=== PATIENT | male | born 1975 | race African-American/Black ===

== ENCOUNTER 2020-07-20 19:20 | Emergency (ER) | payer OTHER, SELFPAY ==
[2020-07-20 19:25] VITALS: BP 179/100
[2020-07-20 19:28] VITALS: BP 179/100; PULSE 104; RESP 18; TEMP 36.6; O2SAT 100; BMI 26.8
[2020-07-20 19:35] LABS: Add Manual Diff / Slide Review NO; Basophils Absolute Auto 100 /uL (0-100); Eosinophils Absolute Auto 0 /uL (0-450); Eosinophils Percent Auto 0.8 % (2-4); Hematocrit 41.2 % (41-53); Hemoglobin 13.9 g/dL (13.5-17.5); Lymphocytes Absolute Auto 1500 /uL (1100-4500); Lymphocytes Percent Auto 24.1 % (25-40); Mean Corpuscular HGB Conc 33.6 % (30-36); Mean Corpuscular Hemoglobin 29.9 PG (26-34); Mean Corpuscular Volume 88.9 fL (80-100); Monocytes Absolute Auto 500 /uL (0-900); Monocytes Percent Auto 8.7 % (3-14); Neutrophils Absolute Auto 4000 /uL (1500-7000); Neutrophils Percent Auto 65.4 % (50-75); Platelet Count 178 X10^3/uL (150-400); Red Blood Cell Count 4.64 X10^6/uL (4.5-5.9); Red Cell Distribution Width 12.7 % (11.6-14.8); White Blood Cell Count 6.1 X10^3/uL (4.5-11.0)
[2020-07-20 19:41] LABS: INR 1.1 (0.9-1.3); Prothrombin Time 12.3 SECONDS (10.1-12.7)
[2020-07-20 19:44] LABS: PTT Partial Thromboplastin Tim 31 SECONDS (26.4-36.2)
[2020-07-20 19:45] LABS: Alanine Aminotransferase 35 IU/L (<50); Albumin 4.5 g/dL (3.5-5.0); Albumin Globulin Ratio 1.2 (1.0-2.8); Alkaline Phosphatase 169 U/L (38-126); Aspartate Aminotransferase 55 IU/L (17-59); BUN Creatinine Ratio 15.7 (6-22); Bilirubin Total 0.7 mg/dL (0.2-1.3); Blood Urea Nitrogen 14 mg/dL (9-20); Calcium 9.2 mg/dL (8.4-10.2); Carbon Dioxide 28 mmol/L (22-32); Chloride 100 mmol/L (98-107); Estimated Glomerular Filt Rate > 60.0 mL/min (>60); Globulin 3.8 g/dL (1.7-4.1); Glucose 236 mg/dL (70-100); HEMOLYSIS 31 (0-50); Lipase 150 U/L (23-300); Potassium 3.8 mmol/L (3.4-5.1); Sodium 135 mmol/L (137-145); Total Protein 8.3 g/dL (6.3-8.2)
--- NOTE | 2020-07-20 19:47 | ED.ABDPAIN ---
HPI - Abdominal Pain General Chief Complaint: Abdominal Pain Stated Complaint: stomach pain Time Seen by Provider: 07/20/20 19:34 Source: patient Mode of arrival: Ambulatory Limitations: no limitations History of Present Illness HPI narrative: The patient is a 44-year-old male current smoker with history of type 2 diabetes and hypertension who presents with a chief complaint of abdominal pain. He states that his stomach has been hurting across his lower abdomen, especially after he eats. He has had some changes in stool range from constipation to loose stools. He has tried Pepto-Bismol to feel better, but it has not worked. He denies any fevers, complains of nausea with no vomiting. Denies any muscle aches or chills. He states that when the pain gets really bad he feels exhausted. He denies any dysuria urgency or frequency. He states that his bowel movements though have been alternating between constipation and diarrhea have been normal with no obvious blood. Denies any chest pain or shortness of breath. Denies any cough or congestion. He states that he is supposed to take medications for his diabetes and hypertension including insulin and lisinopril, but has not been taking them because of how he is feeling. He states his blood sugars have been running high in the 200s. Patient notes that this all started when he became very stressed a few weeks ago, with some family conflict between his girlfriend is teenagers. Related Data Allergies Allergy/AdvReac Type Severity Reaction Status Date / Time No Known Drug Allergies Allergy Verified 07/20/20 19:27 Review of Systems Review of Systems Narrative: GENERAL: See HPI HEENT: Denies sinus pain, ear pain, sore throat, difficulty swallowing, dizziness. RESPIRATORY: Denies dyspnea, cough, wheezing, hemoptysis, sputum. CARDIOVASCULAR: Denies chest pain, palpitations, orthopnea, edema, GASTROINTESTINAL: See HPI : Denies dysuria, frequency, incontinence, hematuria, urinary retention. MUSCULOSKELETAL: denies weakness, joint pain, or bony pain SKIN: Denies rash, skin lesions, or other NEUROLOGIC: Denies weakness, headache, numbness, change in speech, confusion, seizures, incoordination. PSYCHIATRIC: No concerning psychosocial issues. 12 point review of systems is negative except for those stated above Patient History Medical History (Updated 07/20/20 @ 19:49 by Audra Kvng, RECORDS SUPERVISOR-BC) Hypertension Type 2 diabetes mellitus Social History Smoking Status: Current every day smoker Smoking Status: Current every day smoker tobacco type: vaping alcohol intake frequency: a few times a week Substance Use Type: does not use Exam Narrative Exam Narrative: GENERAL: This is a well-nourished, well-developed patient, in no acute distress HEAD: Atraumatic. Normocephalic. No temporal or scalp tenderness. EYES: Pupils equal round and reactive. Extraocular motions intact. No scleral icterus. No injection or drainage. ENT: Nose without bleeding, purulent drainage or septal hematoma. Wearing a mask Airway patent. NECK: Trachea midline. No JVD or lymphadenopathy. Supple, nontender, no meningeal signs. CARDIOVASCULAR: Regular rate and rhythm RESPIRATORY: Clear to auscultation. Breath sounds equal bilaterally. No wheezes, rales, or rhonchi. No cough. No increased respiratory effort. No accessory muscle use GASTROINTESTINAL: Abdomen soft, active bowel sounds all 4 quadrants, guarding noted to palpation of left lower quadrant EXTREMITIES: No clubbing, cyanosis, or edema. No joint tenderness, effusion, or edema noted. BACK: Nontender without deformity or crepitance. No flank tenderness. NEURO: AOx3. SKIN: No rash or erythema on visible skin Initial Vital Signs Initial Vital Signs: Vital Signs Temperature 97.9 F 07/20/20 19:28 Pulse Rate 104 H 07/20/20 19:28 Respiratory Rate 18 07/20/20 19:28 Blood Pressure 179/100 H 07/20/20 19:28 Pulse Oximetry 100 07/20/20 19:28 Scores GCS [place] coma scale eye opening: Spontaneous [place] coma scale verbal response: Orientated [place] coma scale motor response: Obey commands [place] coma scale total score: 15 Course Orders Ordered: ED Orders 07/20/20 19:30 Complete Blood Count AUTO DIFF Stat Comprehensive Metabolic Panel Stat Lipase Stat Partial Thromboplastin Time Stat Prothrombin Time INR Stat 07/20/20 19:31 EKG-12 Lead Stat Sodium Chloride (Normal Saline 0.9%) 1,000 mls @ 1,000 mls/hr IV BOLUS ONE Stop: 07/20/20 20:45 Discontinued Medications Pantoprazole Sodium (Pantoprazole 40 Mg Vial) 40 mg IV NOW ONE Stop: 07/20/20 19:47 Vital Signs Vital signs: Vital Signs - 8 hr 07/20/20 19:28 Temperature 97.9 F Pulse Rate 104 H Respiratory Rate 18 Blood Pressure 179/100 H Pulse Oximetry 100 MDM - Abdominal Pain Lab Data Result diagrams: 07/20/20 19:30 07/20/20 19:30 Labs: Lab Results 07/20/20 07/20/20 07/20/20 Range/Units 19:30 19:30 19:30 WBC 6.1 (4.5-11.0) X10^3/uL RBC 4.64 (4.5-5.9) X10^6/uL Hgb 13.9 (13.5-17.5) g/dL Hct 41.2 (41-53) % MCV 88.9 (80-100) fL MCH 29.9 (26-34) PG MCHC 33.6 (30-36) % RDW 12.7 (11.6-14.8) % Plt Count 178 (150-400) X10^3/uL Neut % (Auto) 65.4 (50-75) % Lymph % (Auto) 24.1 L (25-40) % [place] % (Auto) 8.7 (3-14) % Eos % (Auto) 0.8 L (2-4) % Baso % (Auto) 1.0 (0-2) % Neut # (Auto) 4000 (6176-0989) /uL Lymph # (Auto) 1500 (0213-4175) /uL [place] # (Auto) 500 (0-900) /uL Eos # (Auto) 0 (0-450) /uL Baso # (Auto) 100 (0-100) /uL PT 12.3 (10.1-12.7) SECONDS INR 1.1 (0.9-1.3) APTT 31 (26.4-36.2) SECONDS Sodium 135 L (137-145) mmol/L Potassium 3.8 (3.4-5.1) mmol/L Chloride 100 (98-107) mmol/L Carbon Dioxide 28 (22-32) mmol/L BUN 14 (9-20) mg/dL Creatinine 0.89 (0.66-1.25) mg/dL Estimated GFR > 60.0 (>60) mL/min BUN/Creatinine Ratio 15.7 (6-22) Glucose 236 H (70-100) mg/dL Calcium 9.2 (8.4-10.2) mg/dL Total Bilirubin 0.7 (0.2-1.3) mg/dL AST 55 (17-59) IU/L ALT 35 (<50) IU/L Alkaline Phosphatase 169 H (38-126) U/L Total Protein 8.3 H (6.3-8.2) g/dL Albumin 4.5 (3.5-5.0) g/dL Globulin 3.8 (1.7-4.1) g/dL Albumin/Globulin Ratio 1.2 (1.0-2.8) Lipase 150 (23-300) U/L
--- NOTE | 2020-07-20 19:54 | DI.CT.S_ITS ---
PROCEDURE: CT ABDOMEN PELVIS W CON INDICATIONS: LLQ pain TECHNIQUE: After the administration of intravenous contrast, 5 mm thick sections acquired from the diaphragm to the symphysis. 5 mm coronal and sagittal reformats were acquired. For radiation dose reduction, the following was used: automated exposure control, adjustment of mA and/or kV according to patient size. COMPARISON: None. FINDINGS: Image quality: Excellent. ABDOMEN: Lung bases: Lung bases are clear. Heart size is normal. Solid organs: Liver is normal in size and enhancement. Hepatic steatosis. Gallbladder is unremarkable. . Biliary system is non dilated. Pancreas enhances normally. Spleen is normal in size and enhancement. No adrenal nodules. Kidneys demonstrate normal size and enhancement, without hydronephrosis. Peritoneum and bowel: Bowel loops demonstrate normal wall thickness and caliber. No free fluid or air. Normal appendix. Nodes and vessels: No retroperitoneal or mesenteric adenopathy by size criteria. Aorta and inferior vena cava are normal in size. Miscellaneous: No ventral hernias. PELVIS: Genitourinary: There is minimal circumferential urinary bladder wall thickness for degree of bladder distention. Miscellaneous: No inguinal hernias or adenopathy. Bones: No suspicious bony lesions. No acute vertebral body compression fractures. IMPRESSION: 1. CT abdomen and pelvis without acute abnormalities. Specifically, no evidence for diverticular disease or acute appendicitis. 2. Minimal urinary bladder wall thickening for degree of bladder distention. Recommend evaluating for possible cystitis. 3. Hepatic steatosis. Dictated by: Oli Rivera M.D. on 07/20/2020 at 20:49 Approved by: Oli Rivera M.D. on 07/20/2020 at 20:53
--- NOTE | 2020-07-20 19:58 | ED_ITS ---
HPI - Abdominal Pain [facility] - Last Filed: 07/20/20 20:13> General Chief Complaint: Abdominal Pain Stated Complaint: stomach pain Time Seen by Provider: 07/20/20 19:34 Source: patient Mode of arrival: Ambulatory Limitations: no limitations History of Present Illness HPI narrative: The patient is a 44-year-old male, history of type 2 diabetes as well as hypertension on lisinopril and insulin who presents with a chief complaint of left lower quadrant abdominal pain. He states has been going on for several weeks, worsened after he eats. He complains of nausea, no vomiting. Denies any fevers. Denies any blood in his stool. States that he rotates between constipation and loose stools. He has tried Pepto-Bismol, but he does not like the taste of that. She has tried ibuprofen, but then his pain feels worse in the morning. He denies any dysuria urgency or frequency. States his last bowel movement was this morning. His primary care provider is in [place]. He states that he has been feeling poorly enough to not be taking his medications, so his blood sugars have been high in the 200s. He states his last bowel movement was today. Related Data Previous Rx's Medication Instructions Recorded pantoprazole [Protonix] 40 mg PO DAILY #14 tab 07/20/20 Allergies Allergy/AdvReac Type Severity Reaction Status Date / Time No Known Drug Allergies Allergy Verified 07/20/20 19:27 Review of Systems <[facility] - Last Filed: 07/20/20 20:13> Review of Systems Narrative: GENERAL: See HPI HEENT: Denies sinus pain, ear pain, sore throat, difficulty swallowing, dizziness. RESPIRATORY: Denies dyspnea, cough, wheezing, hemoptysis, sputum. CARDIOVASCULAR: Denies chest pain, palpitations, orthopnea, edema, GASTROINTESTINAL: See HPI : Denies dysuria, frequency, incontinence, hematuria, urinary retention. MUSCULOSKELETAL: denies weakness, joint pain, or bony pain SKIN: Denies rash, skin lesions, or other NEUROLOGIC: Denies weakness, headache, numbness, change in speech, confusion, seizures, incoordination. PSYCHIATRIC: No concerning psychosocial issues. 12 point review of systems is negative except for those stated above Patient History <[facility] - Last Filed: 11/18/20 20:13> Medical History Hypertension Type 2 diabetes mellitus Social History Smoking Status: Current every day smoker Smoking Status: Current every day smoker tobacco type: vaping alcohol intake frequency: a few times a week Substance Use Type: does not use Exam <VEGA Umaña - Last Filed: 07/20/20 20:13> Narrative Exam Narrative: GENERAL: This is a well-nourished, well-developed patient, in no acute distress HEAD: Atraumatic. Normocephalic. No temporal or scalp tenderness. EYES: Pupils equal round and reactive. Extraocular motions intact. No scleral icterus. No injection or drainage. ENT: Nose without bleeding, purulent drainage or septal hematoma. Wearing a mask. Airway patent. NECK: Trachea midline. No JVD or lymphadenopathy. Supple, nontender, no meningeal signs. CARDIOVASCULAR: Regular rate and rhythm RESPIRATORY: Clear to auscultation. Breath sounds equal bilaterally. No wheezes, rales, or rhonchi. No cough. No increased respiratory effort. No accessory muscle use. GASTROINTESTINAL: Abdomen soft, active bowel sounds all 4 quadrants. Pain to palpation with guarding noted left lower quadrant. EXTREMITIES: No clubbing, cyanosis, or edema. No joint tenderness, effusion, or edema noted. BACK: Nontender without deformity or crepitance. No flank tenderness. NEURO: AOx3. SKIN: No rash or erythema on visible skin Initial Vital Signs Initial Vital Signs: Vital Signs Blood Pressure 179/100 H 07/20/20 19:25 <Joel Gonsalves DO - Last Filed: 07/21/20 04:44> Initial Vital Signs Initial Vital Signs: Vital Signs Blood Pressure 179/100 H 07/20/20 19:25 Scores <VEGA Umaña - Last Filed: 07/20/20 20:13> GCS [place] coma scale eye opening: Spontaneous [place] coma scale verbal response: Orientated [place] coma scale motor response: Obey commands [place] coma scale total score: 15 Course <VEGA Umaña - Last Filed: 07/20/20 20:13> Course Course Narrative: The patient is a 44-year-old male who presents with a chief complaint of left lower quadrant abdominal pain, worse after he eats. His lab work is reassuring, no leukocytosis. However his guarding on exam, it is had pain ongoing for several weeks, so CT abdomen pelvis was obtained. Unfortunately the patient drove here and cannot obtain a ride home, so he declines pain medications throughout my stay. The patient was signed out to Dr. Gonsalves at 8:00 p.m. with imaging pending. Orders Ordered: ED Orders 07/20/20 19:54 CT abdomen pelvis w con Stat Discontinued Medications Al Hydrox/Mg Hydrox/Simethicone 20 ml/ Lidocaine HCl 15 ml 0 ml PO NOW ONE Stop: 07/20/20 21:32 Last Admin: 07/20/20 21:38 Dose: 35 ml Documented by: JUSTIN Sodium Chloride (Normal Saline 0.9%) 1,000 mls @ 1,000 mls/hr IV BOLUS ONE Stop: 07/20/20 20:45 Last Infusion: 07/20/20 22:13 Dose: 0 mls/hr Documented by: Admin: 07/20/20 20:36 Dose: 1,000 mls/hr Documented by: JUSTIN Pantoprazole Sodium (Pantoprazole 40 Mg Vial) 40 mg IV NOW ONE Stop: 07/20/20 19:47 Last Admin: 07/20/20 20:35 Dose: 40 mg Documented by: JUSTIN Vital Signs Vital signs: Vital Signs - 8 hr 07/20/20 20:58 07/20/20 20:59 07/20/20 21:49 Pulse Rate 91 H 85 77 Respiratory Rate 17 Blood Pressure 179/107 H 187/110 H Pulse Oximetry 99 100 100 <Joel Gonsalves, DO - Last Filed: 07/21/20 04:44> Course Course Narrative: I have performed an independent history and physical. It would seem that his symptoms are likely multifactorial and stemming from stressful scenarios at home which led him to drink a bit more than normal, change in his diet (worse than normal) and has been irregular with his medications. His labs, imaging, and exam are all very reassuring. Extensive discussion with patient regarding resuming his meds, limiting alcohol consumption, better diet, close follow up and return precautions. Orders Ordered: ED Orders 07/20/20 19:54 CT abdomen pelvis w con Stat Discontinued Medications Al Hydrox/Mg Hydrox/Simethicone 20 ml/ Lidocaine HCl 15 ml 0 ml PO NOW ONE Stop: 07/20/20 21:32 Last Admin: 07/20/20 21:38 Dose: 35 ml Documented by: JUSTIN Sodium Chloride (Normal Saline 0.9%) 1,000 mls @ 1,000 mls/hr IV BOLUS ONE Stop: 07/20/20 20:45 Last Infusion: 07/20/20 22:13 Dose: 0 mls/hr Documented by: Admin: 07/20/20 20:36 Dose: 1,000 mls/hr Documented by: JUSTIN Pantoprazole Sodium (Pantoprazole 40 Mg Vial) 40 mg IV NOW ONE Stop: 07/20/20 19:47 Last Admin: 07/20/20 20:35 Dose: 40 mg Documented by: JUSTIN Vital Signs Vital signs: Vital Signs - 8 hr 07/20/20 20:58 07/20/20 20:59 07/20/20 21:49 Pulse Rate 91 H 85 77 Respiratory Rate 17 Blood Pressure 179/107 H 187/110 H Pulse Oximetry 99 100 100 MDM - Abdominal Pain <ROSIE Umaña- - Last Filed: 07/20/20 20:13> Lab Data Result diagrams: 07/20/20 19:30 07/20/20 19:30 Labs: Lab Results 07/20/20 07/20/20 07/20/20 Range/Units 19:30 19:30 19:30 WBC 6.1 (4.5-11.0) X10^3/uL RBC 4.64 (4.5-5.9) X10^6/uL Hgb 13.9 (13.5-17.5) g/dL Hct 41.2 (41-53) % MCV 88.9 (80-100) fL MCH 29.9 (26-34) PG MCHC 33.6 (30-36) % RDW 12.7 (11.6-14.8) % Plt Count 178 (150-400) X10^3/uL Neut % (Auto) 65.4 (50-75) % Lymph % (Auto) 24.1 L (25-40) % [place] % (Auto) 8.7 (3-14) % Eos % (Auto) 0.8 L (2-4) % Baso % (Auto) 1.0 (0-2) % Neut # (Auto) 4000 (6266-0756) /uL Lymph # (Auto) 1500 (5811-7107) /uL [place] # (Auto) 500 (0-900) /uL Eos # (Auto) 0 (0-450) /uL Baso # (Auto) 100 (0-100) /uL PT 12.3 (10.1-12.7) SECONDS INR 1.1 (0.9-1.3) APTT 31 (26.4-36.2) SECONDS Sodium 135 L (137-145) mmol/L Potassium 3.8 (3.4-5.1) mmol/L Chloride 100 (98-107) mmol/L Carbon Dioxide 28 (22-32) mmol/L BUN 14 (9-20) mg/dL Creatinine 0.89 (0.66-1.25) mg/dL Estimated GFR > 60.0 (>60) mL/min BUN/Creatinine Ratio 15.7 (6-22) Glucose 236 H (70-100) mg/dL Calcium 9.2 (8.4-10.2) mg/dL Total Bilirubin 0.7 (0.2-1.3) mg/dL AST 55 (17-59) IU/L ALT 35 (<50) IU/L Alkaline Phosphatase 169 H (38-126) U/L Total Protein 8.3 H (6.3-8.2) g/dL Albumin 4.5 (3.5-5.0) g/dL Globulin 3.8 (1.7-4.1) g/dL Albumin/Globulin Ratio 1.2 (1.0-2.8) Lipase 150 (23-300) U/L Point of care testing: Urine Dip Bedside Urine Glucose 500 mg/dl Bedside Urine Bilirubin - Negative Bedside Urine Ketone - Negative Urine Specific [place] 1.010 Bedside Urine Occult Blood - Negative Bedside Urine pH 6.0 Bedside Urine Protein - Negative Bedside Urine Urobilinogen - Negative Bedside Urine Nitrite - Negative Bedside Urine Leukocytes - Negative Esterase <Joel Gonsalves DO - Last Filed: 07/21/20 04:44> Lab Data Labs: Lab Results 11/07/20/20 07/20/20 Range/Units 19:30 19:30 19:30 WBC 6.1 (4.5-11.0) X10^3/uL RBC 4.64 (4.5-5.9) X10^6/uL Hgb 13.9 (13.5-17.5) g/dL Hct 41.2 (41-53) % MCV 88.9 (80-100) fL MCH 29.9 (26-34) PG MCHC 33.6 (30-36) % RDW 12.7 (11.6-14.8) % Plt Count 178 (150-400) X10^3/uL Neut % (Auto) 65.4 (50-75) % Lymph % (Auto) 24.1 L (25-40) % [place] % (Auto) 8.7 (3-14) % Eos % (Auto) 0.8 L (2-4) % Baso % (Auto) 1.0 (0-2) % Neut # (Auto) 4000 (3708-4613) /uL Lymph # (Auto) 1500 (1736-8117) /uL [place] # (Auto) 500 (0-900) /uL Eos # (Auto) 0 (0-450) /uL Baso # (Auto) 100 (0-100) /uL PT 12.3 (10.1-12.7) SECONDS INR 1.1 (0.9-1.3) APTT 31 (26.4-36.2) SECONDS Sodium 135 L (137-145) mmol/L Potassium 3.8 (3.4-5.1) mmol/L Chloride 100 (98-107) mmol/L Carbon Dioxide 28 (22-32) mmol/L BUN 14 (9-20) mg/dL Creatinine 0.89 (0.66-1.25) mg/dL Estimated GFR > 60.0 (>60) mL/min BUN/Creatinine Ratio 15.7 (6-22) Glucose 236 H (70-100) mg/dL Calcium 9.2 (8.4-10.2) mg/dL Total Bilirubin 0.7 (0.2-1.3) mg/dL AST 55 (17-59) IU/L ALT 35 (<50) IU/L Alkaline Phosphatase 169 H (38-126) U/L Total Protein 8.3 H (6.3-8.2) g/dL Albumin 4.5 (3.5-5.0) g/dL Globulin 3.8 (1.7-4.1) g/dL Albumin/Globulin Ratio 1.2 (1.0-2.8) Lipase 150 (23-300) U/L Point of care testing: Urine Dip Bedside Urine Glucose 500 mg/dl Bedside Urine Bilirubin - Negative Bedside Urine Ketone - Negative Urine Specific [place] 1.010 Bedside Urine Occult Blood - Negative Bedside Urine pH 6.0 Bedside Urine Protein - Negative Bedside Urine Urobilinogen - Negative Bedside Urine Nitrite - Negative Bedside Urine Leukocytes - Negative Esterase Imaging Data CT scan - abdomen/pelvis: Radiologist's Impression: 26 Joel Gonsalves, DO Find Patient Imaging - Jason Leal 44 M 1975 ACTIVITY DATE EXAM STATUS AUTHOR 07/20/20 19:[address] [id number] Scan ReportSigned Patient: Jason LealMR#: [id number]: 1975Acct:[id number]/Sex: 44 / MDate of Service: 07/20/20Loc: EDAccession Number: [id number] Procedure: CT abdomen pelvis w con Ordering Provider: Audra Calderon WEB CONTENT DEVELOPER- PROCEDURE: CT ABDOMEN PELVIS W CON INDICATIONS: LLQ pain TECHNIQUE: After the administration of intravenous contrast, 5 mm thick sections acquired from the diaphragm to the symphysis. 5 mm coronal and sagittal reformats were acquired. For radiation dose reduction, the following was used: automated exposure control, adjustment of mA and/or kV according to patient size. COMPARISON: None. FINDINGS: Image quality: Excellent. ABDOMEN: Lung bases: Lung bases are clear. Heart size is normal. Solid organs: Liver is normal in size and enhancement. Hepatic steatosis. G allbladder is unremarkable. . Biliary system is non dilated. Pancreas enhances normally. Spleen is normal in size and enhancement. No adrenal nodules. Kidneys demonstrate normal size and enhancement, without hydronephrosis. Peritoneum and bowel: Bowel loops demonstrate normal wall thickness and caliber. No free fluid or air. Normal appendix. Nodes and vessels: No retroperitoneal or mesenteric adenopathy by size criteria. Aorta and inferior vena cava are normal in size. Miscellaneous: No ventral hernias. PELVIS: Genitourinary: There is minimal circumferential urinary bladder wall thickness for degree of bladder distention. Miscellaneous: No inguinal hernias or adenopathy. Bones: No suspicious bony lesions. No acute vertebral body compression fractures. IMPRESSION: 1. CT abdomen and pelvis without acute abnormalities. Specifically, no evidence for diverticular disease or acute appendicitis. 2. Minimal urinary bladder wall thickening for degree of bladder distention. Recommend evaluating for possible cystitis. 3. Hepatic steatosis. Dictated by: Oli Rivera M.D. on 07/20/2020 at 20:49 Approved by: Oli Rivera M.D. on 07/20/2020 at 20:53 Discharge Plan Departure Patient Disposition: Home Clinical Impression: Abdominal pain, acute, left upper quadrant Type 2 diabetes mellitus Qualifiers: Diabetes mellitus intermediate card tender insulin use: unspecified intermediate card tender insulin use status Diabetes mellitus complication status: without complication Qualified Code(s): E11.9 - Type 2 diabetes mellitus without complications Instructions: Acute Abdominal Pain Activity Restrictions/Additional Instructions: *You have been diagnosed with [upper abdominal pain likely mild ulcer or gastritis. Your labs and CT scan are very reassuring and there is no evidence significant problem such as appendicitis, pancreatitis, or bowel obstruction] *What to do: *You must take your medications as directed. Also, take the new prescription (protonix) as written. Try to get back on a healthy diet and avoid alcohol, nicotine, fatty, or acidic foods *Follow up with your primary care provider in 2-3 days, call for an appointment. Let them know you were seen in the Emergency Department and that we ask that you be seen in follow up *Return to ER if you should have any new, worsening or concerning symptoms Prescriptions: New pantoprazole [Protonix] 40 mg tablet,delayed release (DR/EC) 40 mg PO DAILY Qty: 14 RF: 0 Referrals: [facility] [Outside]
[2020-07-20] MEDS: PANTOPRAZOLE 40 MG VIAL IV (20:35)
[2020-07-20] MEDS: SODIUM CHLORIDE 0.9% 1,000 ML 1000 ML IV (20:36)
[2020-07-20 20:58] VITALS: PULSE 91; O2SAT 99
[2020-07-20 20:59] VITALS: BP 179/107; PULSE 85; O2SAT 100
[2020-07-20] MEDS: MAG HYDROX/ALUMINUM/SIMETH SUS 20 ML, LIDOCAINE VISCOUS 2% 15 ML PO (21:38)
[2020-07-20 21:49] VITALS: BP 187/110; PULSE 77; RESP 17; O2SAT 100
== END 2020-07-20 21:56 | disposition home or self-care (01) ==
PROVIDERS: Emergency Provider Emergency Medicine
DX: R10.32 Left lower quadrant pain (principal); I10 Essential (primary) hypertension; E11.9 Type 2 diabetes mellitus without complications
CPT/HCPCS: 36415; 74177; 80053; 81003; 83690; 85025; 85610; 85730; 93005; 96361; 96374; 99284; C9113; Q9967

== ENCOUNTER → 2021-06-22 09:07 | Outpatient (CLI) | payer BC, SELFPAY ==
[2021-06-22 10:34] LABS: Hemoglobin A1C% w Est Avg Glu 7.1 % (4.0-6.0)
[2021-06-22 10:58] LABS: Alanine Aminotransferase 81 IU/L (<50); Albumin 4.9 g/dL (3.5-5.0); Albumin Globulin Ratio 1.5 (1.0-2.8); Alkaline Phosphatase 88 U/L (38-126); Aspartate Aminotransferase 56 IU/L (17-59); Bilirubin Total 1.3 mg/dL (0.2-1.3); Blood Urea Nitrogen 15 mg/dL (9-20); Carbon Dioxide 28 mmol/L (22-32); Chloride 98 mmol/L (98-107); Cholesterol 166 mg/dL (140-199); Estimated Glomerular Filt Rate > 60.0 mL/min (>60); Globulin 3.3 g/dL (1.7-4.1); Glucose 144 mg/dL (70-100); HDL Cholesterol 42 mg/dL (40-60); HEMOLYSIS 20 (0-50); LDL Cholesterol Calculated 108 mg/dL (<100); Potassium 4.7 mmol/L (3.4-5.1); Sodium 138 mmol/L (137-145); Total Protein 8.2 g/dL (6.3-8.2); Triglycerides 81 mg/dL (35-150)
[2021-06-22 11:42] LABS: Microalbumin Urine Random 3.1 mg/dL (0-1.6)
== END ==
PROVIDERS: PCP Family Medicine; Referring Provider Podiatrist; Visit Provider Podiatrist
DX: R73.9 Hyperglycemia, unspecified (principal); I10 Essential (primary) hypertension
CPT/HCPCS: 36415; 80053; 80061; 82043; 82570; 83036; 93005; 93010

== ENCOUNTER → 2021-07-19 09:03 | Outpatient (CLI) | payer BC, SELFPAY ==
[2021-07-19 11:32] LABS: COVID19 -Nasal RAPID Negative (Negative)
== END ==
PROVIDERS: PCP Family Medicine; Referring Provider Nurse Practitioner Family; Visit Provider Nurse Practitioner Family
DX: Z20.822 Contact with and (suspected) exposure to COVID-19 (principal)
CPT/HCPCS: 87635

== ENCOUNTER 2021-07-20 13:23 | Day surgery (SDC) | payer OTHER, SELFPAY ==
[2021-07-14 07:42] VITALS: BMI 28.3
[2021-07-20 13:57] VITALS: BP 127/86; PULSE 87; RESP 18; TEMP 36.3; O2SAT 100; BMI 27.2
[2021-07-20] MEDS: ACETAMINOPHEN 325 MG TABLET 975 MG PO (14:13)
[2021-07-20] MEDS: LACTATED RINGERS 1,000 ML 42 ML IV ×2 (14:13→15:53)
[2021-07-20] MEDS: GABAPENTIN 300 MG CAPSULE PO (14:13)
--- NOTE | 2021-07-20 15:47 | SUR.PREOP ---
After IV placed patient stated he was dizzy and had some blurry vision. Blood pressure noted to be 77/53. Patient laid flat and legs elevated. Patient stated he was beginning to feel better and blood pressure rechecked to be 95/57. Patient rechecked a little later and noted to be 128/76 and a heart rate of 85. States he feels much better. Dr. Cota notified of episode; no new orders noted.
--- NOTE | 2021-07-20 16:10 | PM.PREOP ---
Pre-operative Note COVID-19 COVID-19 status: Negative Result date/Date tested (Pos, Neg/Pending): 07/19/21 Interval Note History & Physical reviewed/Exam performed by Physician: Yes Changes to H&P: No
--- NOTE | 2021-07-20 16:13 | SUR.OPER ---
Supine on padded OR bed, head on pillow, arms secured on padded arm boards at <90 degrees abduction, legs uncrossed, safety belt across abdomen, tape over blanket over nonoperative lower leg.
--- NOTE | 2021-07-20 16:20 | PM.OP.1 ---
Operative Date/Time/Diagnoses Date of procedure: 07/20/21 Time of procedure: 16:20 Pre-op diagnosis: Right great toe bunion Post-op diagnosis: same Procedure & Clinicians Procedure: Right bunionectomy Same procedure as scheduled: Yes Indications: 45-year-old male with painful bunion on the right foot. Conservative measures have failed to alleviate his pain and he wished to have surgical intervention at this time. We spoke of the risks, potential complications, expected outcomes, as well as alternative options. Consent was signed, no contraindication to the procedure at this time. Surgeon: Blanca Cota Click Yes if Unassisted: Yes Anesthesia Type: General Operative Notes Closure Type: primary Specimen(s): none sent Estimated Blood Loss (mL): 20 Procedure in detail: The patient was brought to the operating room and placed on the operating table in the supine position. Tourniquet was placed about the right ankle. Well padded, appropriately aligned. After induction of general anesthesia the right foot and ankle were prepped and draped in the usual aseptic manner. The tourniquet was inflated. Incision was made over the right 1st metatarsal phalangeal joint. The incision was deepened through subcutaneous tissues being careful to identify and retract all vital neurovascular structures. All bleeders were cauterized and ligated as necessary. A medial capsulotomy was performed to the 1st MTPJ exposing the enlarged medial eminence. The saw was used to resect the medial eminence. A rasp was used to reduce the sharp edges of the bone. The area was irrigated with copious amounts normal sterile saline. The great toe was placed in linear alignment and the medial 1st MTP redundant capsule was resected and repaired with Vicryl. The tourniquet was deflated and a prompt hyperemic response was seen in the foot. Deep and subcutaneous closure was closed performed with Vicryl, and Nylon suture to the skin. The foot was dressed with a lightly compressive sterile dressing and splint in alignment. Patient was then placed in a postoperative shoe and transferred to PACU with vital signs stable Post-operative Condition: stable Disposition: PACU Plan for aftercare: Following a period of postoperative monitoring, the patient be discharged home on written and oral postoperative instructions including keeping the dressing dry and intact, avoiding significant ambulation on the foot, elevating the foot when seated home. DVT prevention techniques have been reviewed. For the 1st postoperative visit the dressing will be changed and close to the 3rd postoperative week we will likely remove the sutures.
[2021-07-20] MEDS: CEFAZOLIN 1 GM VIAL 2 GM IV (16:24)
[2021-07-20] MEDS: BUPIVACAINE 0.5% (PF) VIAL 30 ML INJ (16:27)
[2021-07-20 17:19] VITALS: BP 104/56; PULSE 79; RESP 16; TEMP 36; O2SAT 96
[2021-07-20 17:23] VITALS: BP 100/59; PULSE 80; RESP 10; O2SAT 99
[2021-07-20 17:33] VITALS: BP 115/70; PULSE 84; RESP 15; O2SAT 100
[2021-07-20 17:38] VITALS: BP 131/88; PULSE 89; RESP 13; TEMP 36.2; O2SAT 100
[2021-07-20 17:45] VITALS: BP 124/72; PULSE 94; RESP 16; O2SAT 100
== END 2021-07-20 17:55 | disposition home or self-care (01) ==
PROVIDERS: PCP Family Medicine; Referring Provider Podiatrist; Visit Provider Podiatrist
PROC: 0QBN0ZZ Excision of Right Metatarsal, Open Approach (ICD-10-PCS; CPT 28292; principal; 2021-07-20 14:45)
DX: M20.11 Hallux valgus (acquired), right foot (principal); M72.2 Plantar fascial fibromatosis; M79.671 Pain in right foot; E11.9 Type 2 diabetes mellitus without complications; Z79.4 Long term (current) use of insulin; I10 Essential (primary) hypertension; K21.9 Gastro-esophageal reflux disease without esophagitis
CPT/HCPCS: 28292; J0690; J1100; J2405; J2704; J3010

== ENCOUNTER → 2022-08-06 12:41 | Outpatient (CLI) | payer OTHER, SELFPAY ==
[2022-08-06 17:00] LABS: Alanine Aminotransferase 51 IU/L (<50); Albumin 5.1 g/dL (3.5-5.0); Albumin Globulin Ratio 1.8 (1.0-2.8); Alkaline Phosphatase 89 U/L (38-126); Aspartate Aminotransferase 51 IU/L (17-59); Bilirubin Total 0.8 mg/dL (0.2-1.3); Blood Urea Nitrogen 15 mg/dL (9-20); Calcium 9.8 mg/dL (8.4-10.2); Carbon Dioxide 29 mmol/L (22-32); Chloride 98 mmol/L (98-107); Estimated Glomerular Filt Rate > 60 mL/min (>60); Globulin 2.9 g/dL (1.7-4.1); Glucose 125 mg/dL (70-100); HEMOLYSIS < 15 (0-50); Potassium 4.1 mmol/L (3.4-5.1); Sodium 138 mmol/L (137-145)
[2022-08-07 15:48] LABS: Hemoglobin A1C% w Est Avg Glu 7.1 % (4.0-6.0)
== END ==
PROVIDERS: PCP Family Medicine; Referring Provider Family Medicine; Visit Provider Family Medicine
DX: E11.9 Type 2 diabetes mellitus without complications (principal); I10 Essential (primary) hypertension
CPT/HCPCS: 36415; 80053; 83036

== ENCOUNTER 2022-10-08 10:42 | Emergency (ER) | payer OTHER, SELFPAY ==
[2022-10-08 10:48] VITALS: BP 189/111; PULSE 90; RESP 14; TEMP 36.2; O2SAT 99; BMI 28.7
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
[2022-10-08] MEDS: KETOROLAC 30 MG/ML VIAL IM (11:02)
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
[2022-10-08] MEDS: HYDROCODONE/ACET 5/325 TABLET 1 TAB PO (13:04)
== END 2022-10-08 13:08 | disposition home or self-care (01) ==
PROVIDERS: Emergency Provider Emergency Medicine; PCP Family Medicine
DX: R07.81 Pleurodynia (principal); V29.99XA Rider (driver) (passenger) of other motorcycle injured in unspecified traffic accident, initial encounter
CPT/HCPCS: 71101; 96372; 99283; 99284; J1885

== ENCOUNTER → 2023-04-02 11:33 | Outpatient (CLI) | payer OTHER, SELFPAY ==
[2023-04-02 13:15] LABS: Alanine Aminotransferase 48 IU/L (<50); Albumin 4.4 g/dL (3.5-5.0); Albumin Globulin Ratio 1.3 (1.0-2.8); Alkaline Phosphatase 51 U/L (38-126); Aspartate Aminotransferase 45 IU/L (17-59); BUN Creatinine Ratio 10.4 (6-22); Bilirubin Total 1.2 mg/dL (0.2-1.3); Blood Urea Nitrogen 11 mg/dL (9-20); Calcium 10.4 mg/dL (8.4-10.2); Carbon Dioxide 33 mmol/L (22-32); Chloride 96 mmol/L (98-107); Cholesterol 272 mg/dL (140-199); Estimated Glomerular Filt Rate > 60 mL/min (>60); Globulin 3.3 g/dL (1.7-4.1); Glucose 123 mg/dL (70-100); HDL Cholesterol 30 mg/dL (40-60); HEMOLYSIS < 15 (0-50); LDL Cholesterol Calculated 216 mg/dL (<100); Potassium 4.5 mmol/L (3.4-5.1); Sodium 136 mmol/L (137-145); Total Protein 7.7 g/dL (6.3-8.2); Triglycerides 130 mg/dL (35-150)
[2023-04-04 05:52] LABS: x Labcorp Estim. Avg Glu (eAG) 189 mg/dL (.); x Labcorp Hemoglobin A1c 8.2 % (4.8-5.6)
== END ==
PROVIDERS: PCP Family Medicine; Referring Provider Family Medicine; Visit Provider Family Medicine
DX: E11.9 Type 2 diabetes mellitus without complications (principal); I10 Essential (primary) hypertension
CPT/HCPCS: 36415; 80053; 80061; 83036

== ENCOUNTER → 2023-04-04 16:23 | Outpatient (CLI) | payer OTHER, SELFPAY ==
[2023-04-04 19:23] LABS: Creatinine Urine Random 123.8 mg/dL
[2023-04-04 19:27] LABS: Microalbumin Urine Random 3.1 mg/dL (0-1.6)
== END ==
PROVIDERS: PCP Family Medicine; Visit Provider Family Medicine
DX: E11.9 Type 2 diabetes mellitus without complications (principal); I10 Essential (primary) hypertension
CPT/HCPCS: 82043; 82570

== ENCOUNTER → 2023-07-11 16:50 | Outpatient (CLI) | payer OTHER, SELFPAY ==
[2023-07-11 17:30] LABS: Hemoglobin A1C% w Est Avg Glu 10.4 % (4.0-6.0)
[2023-07-11 17:47] LABS: Alanine Aminotransferase 65 IU/L (<50); Albumin 4.8 g/dL (3.5-5.0); Albumin Globulin Ratio 1.4 (1.0-2.8); Alkaline Phosphatase 93 U/L (38-126); Aspartate Aminotransferase 47 IU/L (17-59); BUN Creatinine Ratio 12.3 (6-22); Bilirubin Total 0.8 mg/dL (0.2-1.3); Blood Urea Nitrogen 13 mg/dL (9-20); Calcium 10.4 mg/dL (8.4-10.2); Carbon Dioxide 28 mmol/L (22-32); Chloride 97 mmol/L (98-107); Cholesterol 266 mg/dL (140-199); Estimated Glomerular Filt Rate > 60 mL/min (>60); Globulin 3.5 g/dL (1.7-4.1); Glucose 338 mg/dL (70-100); HDL Cholesterol 32 mg/dL (40-60); HEMOLYSIS < 15 (0-50); LDL Cholesterol Calculated 166 mg/dL (<100); Potassium 4.9 mmol/L (3.4-5.1); Sodium 134 mmol/L (137-145); Total Protein 8.3 g/dL (6.3-8.2); Triglycerides 340 mg/dL (35-150)
[2023-07-11 18:17] LABS: Prostate Specific Antigen Scrn 0.418 ng/mL (0.1-4.0)
[2023-07-14 12:50] LABS: Calcium 10.4 mg/dL (8.7-10.2); Parathyroid Hormone, Intact 24 pg/mL (15-65)
== END ==
PROVIDERS: PCP Family Medicine; Referring Provider Family Medicine; Visit Provider Family Medicine
DX: Z12.5 Encounter for screening for malignant neoplasm of prostate (principal); E11.9 Type 2 diabetes mellitus without complications; I10 Essential (primary) hypertension; R79.89 Other specified abnormal findings of blood chemistry; E83.52 Hypercalcemia
CPT/HCPCS: 80053; 80061; 82310; 83036; 83970; G0103

== ENCOUNTER → 2023-11-14 08:10 | Outpatient (CLI) | payer OTHER, SELFPAY ==
[2023-11-14 08:53] LABS: Hemoglobin A1C% w Est Avg Glu 9.1 % (4.0-6.0)
[2023-11-14 09:01] LABS: Alanine Aminotransferase 32 IU/L (<50); Albumin 4.2 g/dL (3.5-5.0); Albumin Globulin Ratio 1.1 (1.0-2.8); Alkaline Phosphatase 69 U/L (38-126); Aspartate Aminotransferase 45 IU/L (17-59); BUN Creatinine Ratio 6.3 (6-22); Bilirubin Total 1.2 mg/dL (0.2-1.3); Blood Urea Nitrogen 7 mg/dL (9-20); Calcium 9.3 mg/dL (8.4-10.2); Carbon Dioxide 26 mmol/L (22-32); Chloride 102 mmol/L (98-107); Cholesterol 238 mg/dL (140-199); Estimated Glomerular Filt Rate > 60 mL/min (>60); Globulin 3.7 g/dL (1.7-4.1); Glucose 153 mg/dL (70-100); HDL Cholesterol 14 mg/dL (40-60); LDL Cholesterol Calculated 190 mg/dL (<100); Sodium 138 mmol/L (137-145); Total Protein 7.9 g/dL (6.3-8.2); Triglycerides 168 mg/dL (35-150)
[2023-11-14 09:07] LABS: HEMOLYSIS 61 (0-50)
[2023-11-14 09:08] LABS: Potassium 4.5 mmol/L (3.4-5.1)
== END ==
PROVIDERS: PCP Family Medicine; Referring Provider Family Medicine; Visit Provider Family Medicine
DX: E11.9 Type 2 diabetes mellitus without complications (principal); I10 Essential (primary) hypertension
CPT/HCPCS: 36415; 80053; 80061; 83036

== ENCOUNTER → 2023-12-26 09:06 | Outpatient (CLI) | payer OTHER, SELFPAY ==
[2023-12-26 10:33] LABS: Hemoglobin A1C% w Est Avg Glu 8.4 % (4.0-6.0)
== END ==
LOC: LAB 09:07
PROVIDERS: PCP Family Medicine; Referring Provider Family Medicine; Visit Provider Family Medicine
DX: E11.9 Type 2 diabetes mellitus without complications (principal); Z79.899 Other long term (current) drug therapy
CPT/HCPCS: 36415; 83036

== ENCOUNTER → 2024-02-17 08:43 | Outpatient (CLI) | payer OTHER, SELFPAY ==
[2024-02-17 10:22] LABS: Hemoglobin A1C% w Est Avg Glu 6.9 % (4.0-6.0)
[2024-02-17 10:40] LABS: Alanine Aminotransferase 53 IU/L (<50); Albumin 4.5 g/dL (3.5-5.0); Albumin Globulin Ratio 1.6 (1.0-2.8); Alkaline Phosphatase 92 U/L (38-126); Aspartate Aminotransferase 53 IU/L (17-59); BUN Creatinine Ratio 7.4 (6-22); Bilirubin Total 0.6 mg/dL (0.2-1.3); Blood Urea Nitrogen 8 mg/dL (9-20); Calcium 9.3 mg/dL (8.4-10.2); Carbon Dioxide 29 mmol/L (22-32); Chloride 104 mmol/L (98-107); Cholesterol 130 mg/dL (140-199); Estimated Glomerular Filt Rate > 60 mL/min (>60); Globulin 2.8 g/dL (1.7-4.1); Glucose 119 mg/dL (70-100); HDL Cholesterol 55 mg/dL (40-60); HEMOLYSIS < 15 (0-50); LDL Cholesterol Calculated 63 mg/dL (<100); Potassium 4.4 mmol/L (3.4-5.1); Sodium 139 mmol/L (137-145); Total Protein 7.3 g/dL (6.3-8.2); Triglycerides 60 mg/dL (35-150)
[2024-02-18 04:10] LABS: Apolipoprotein B 63 mg/dL (<90)
[2024-02-20 02:09] LABS: Lipoprotein (a) 36.9 nmol/L (<75.0)
== END ==
PROVIDERS: PCP Family Medicine; Referring Provider Family Medicine; Visit Provider Family Medicine
DX: E78.49 Other hyperlipidemia (principal); E11.9 Type 2 diabetes mellitus without complications; I10 Essential (primary) hypertension
CPT/HCPCS: 36415; 80053; 80061; 82172; 83036; 83695

== ENCOUNTER → 2024-08-11 07:50 | Outpatient (CLI) | payer OTHER, SELFPAY ==
[2024-08-11 08:47] LABS: Hemoglobin A1C% w Est Avg Glu 5.9 % (4.0-6.0)
[2024-08-11 08:56] LABS: Alanine Aminotransferase 134 IU/L (<50); Albumin 4.4 g/dL (3.5-5.0); Albumin Globulin Ratio 1.5 (1.0-2.8); Alkaline Phosphatase 165 U/L (38-126); Aspartate Aminotransferase 93 IU/L (17-59); BUN Creatinine Ratio 9.2 (6-22); Bilirubin Total 1.1 mg/dL (0.2-1.3); Blood Urea Nitrogen 11 mg/dL (9-20); Calcium 9.1 mg/dL (8.4-10.2); Carbon Dioxide 24 mmol/L (22-32); Chloride 98 mmol/L (98-107); Cholesterol 276 mg/dL (140-199); Estimated Glomerular Filt Rate > 60 mL/min (>60); Globulin 2.9 g/dL (1.7-4.1); Glucose 132 mg/dL (70-100); HDL Cholesterol 31 mg/dL (40-60); HEMOLYSIS < 15 (0-50); LDL Cholesterol Calculated 228 mg/dL (<100); Potassium 4.5 mmol/L (3.4-5.1); Sodium 135 mmol/L (137-145); Total Protein 7.3 g/dL (6.3-8.2); Triglycerides 86 mg/dL (35-150)
[2024-08-12 03:36] LABS: Apolipoprotein B 169 mg/dL (<90)
== END ==
LOC: LAB 07:51
PROVIDERS: PCP Family Medicine; Referring Provider Family Medicine; Visit Provider Family Medicine
DX: E78.49 Other hyperlipidemia (principal); E11.9 Type 2 diabetes mellitus without complications; I10 Essential (primary) hypertension; N52.9 Male erectile dysfunction, unspecified
CPT/HCPCS: 36415; 80053; 80061; 82172; 83036

== ENCOUNTER → 2024-11-12 10:22 | Outpatient (CLI) | payer OTHER, SELFPAY ==
[2024-11-12 10:56] LABS: Add Manual Diff / Slide Review NO; Basophils Absolute Auto 0 /uL (0-100); Basophils Percent Auto 0.4 % (0-2); Eosinophils Absolute Auto 100 /uL (0-450); Eosinophils Percent Auto 1.5 % (2-4); Hematocrit 51.7 % (41-53); Hemoglobin 17.3 g/dL (13.5-17.5); Lymphocytes Absolute Auto 1200 /uL (1100-4500); Mean Corpuscular HGB Conc 33.5 % (30-36); Mean Corpuscular Hemoglobin 29.5 PG (26-34); Monocytes Absolute Auto 400 /uL (0-900); Neutrophils Absolute Auto 2200 /uL (1500-7000); Neutrophils Percent Auto 56.1 % (50-75); Platelet Count 197 X10^3/uL (150-400); Red Blood Cell Count 5.87 X10^6/uL (4.5-5.9); Red Cell Distribution Width 14.7 % (11.6-14.8); White Blood Cell Count 3.9 X10^3/uL (4.5-11.0)
[2024-11-12 11:07] LABS: HEMOLYSIS < 15 (0-50)
[2024-11-12 11:12] LABS: BUN Creatinine Ratio 10.7 (6-22); Bilirubin Total 1.1 mg/dL (0.2-1.3); Blood Urea Nitrogen 13 mg/dL (9-20); Calcium 9.9 mg/dL (8.4-10.2); Carbon Dioxide 28 mmol/L (22-32); Chloride 98 mmol/L (98-107); Estimated Glomerular Filt Rate > 60 mL/min (>60); Glucose 141 mg/dL (70-100); Potassium 4.4 mmol/L (3.4-5.1); Sodium 137 mmol/L (137-145)
[2024-11-12 11:13] LABS: Alanine Aminotransferase 93 IU/L (<50); Albumin Globulin Ratio 1.6 (1.0-2.8); Alkaline Phosphatase 69 U/L (38-126); Aspartate Aminotransferase 85 IU/L (17-59); Cholesterol 151 mg/dL (140-199); Globulin 3.1 g/dL (1.7-4.1); HDL Cholesterol 32 mg/dL (40-60); LDL Cholesterol Calculated 92 mg/dL (<100); Total Protein 8.1 g/dL (6.3-8.2); Triglycerides 135 mg/dL (35-150)
[2024-11-12 11:45] LABS: Prostate Specific Antigen Scrn 0.516 ng/mL (0.1-4.0); TSH w/ Reflex to FT4 2.07 uIU/mL (0.47-4.68)
[2024-11-13 04:12] LABS: Apolipoprotein B 91 mg/dL (<90)
[2024-11-13 11:26] LABS: Hemoglobin A1C% w Est Avg Glu 6.9 % (4.0-6.0)
[2024-11-13 14:36] LABS: Calcium 10.1 mg/dL (8.7-10.2); Parathyroid Hormone, Intact 27 pg/mL (15-65)
== END ==
LOC: LAB 10:23
PROVIDERS: PCP Family Medicine; Referring Provider Family Medicine; Visit Provider Family Medicine
DX: E11.9 Type 2 diabetes mellitus without complications (principal); E78.49 Other hyperlipidemia; I10 Essential (primary) hypertension; E83.52 Hypercalcemia; R79.89 Other specified abnormal findings of blood chemistry; Z00.00 Encounter for general adult medical examination without abnormal findings; Z13.1 Encounter for screening for diabetes mellitus; Z12.5 Encounter for screening for malignant neoplasm of prostate
CPT/HCPCS: 36415; 80053; 80061; 82172; 82310; 83036; 83970; 84443; 85025; G0103

== ENCOUNTER → 2025-02-18 07:50 | Outpatient (CLI) | payer OTHER, SELFPAY ==
[2025-02-18 08:22] LABS: Add Manual Diff / Slide Review NO; Basophils Absolute Auto 0 /uL (0-100); Basophils Percent Auto 0.4 % (0-2); Eosinophils Absolute Auto 100 /uL (0-450); Eosinophils Percent Auto 1.7 % (2-4); Hematocrit 52.8 % (41-53); Hemoglobin 17.7 g/dL (13.5-17.5); Lymphocytes Absolute Auto 1100 /uL (1100-4500); Lymphocytes Percent Auto 33.6 % (25-40); Mean Corpuscular HGB Conc 33.5 % (30-36); Mean Corpuscular Hemoglobin 29.9 PG (26-34); Monocytes Absolute Auto 400 /uL (0-900); Monocytes Percent Auto 11.2 % (3-14); Neutrophils Absolute Auto 1700 /uL (1500-7000); Neutrophils Percent Auto 53.1 % (50-75); Platelet Count 144 X10^3/uL (150-400); Red Blood Cell Count 5.93 X10^6/uL (4.5-5.9); White Blood Cell Count 3.2 X10^3/uL (4.5-11.0)
[2025-02-18 08:28] LABS: Hemoglobin A1C% w Est Avg Glu 10.1 % (4.0-6.0)
[2025-02-18 08:37] LABS: Alanine Aminotransferase 149 IU/L (<50); Albumin 4.5 g/dL (3.5-5.0); Albumin Globulin Ratio 1.7 (1.0-2.8); Alkaline Phosphatase 127 U/L (38-126); Aspartate Aminotransferase 51 IU/L (17-59); BUN Creatinine Ratio 13.6 (6-22); Bilirubin Total 0.8 mg/dL (0.2-1.3); Blood Urea Nitrogen 15 mg/dL (9-20); Calcium 8.9 mg/dL (8.4-10.2); Carbon Dioxide 27 mmol/L (22-32); Chloride 100 mmol/L (98-107); Estimated Glomerular Filt Rate > 60 mL/min (>60); Globulin 2.6 g/dL (1.7-4.1); Glucose 171 mg/dL (70-99); HEMOLYSIS < 15 (0-50); Potassium 4.5 mmol/L (3.4-5.1); Sodium 136 mmol/L (137-145); Total Protein 7.1 g/dL (6.3-8.2)
[2025-02-18 08:52] LABS: Creatinine Urine Random 89.29 mg/dL
[2025-02-18 08:57] LABS: Microalbumin Urine Random 12.7 mg/dL (0-1.6)
== END ==
LOC: LAB 07:52
PROVIDERS: PCP Family Medicine; Referring Provider Family Medicine; Visit Provider Family Medicine
DX: E78.49 Other hyperlipidemia (principal); E11.9 Type 2 diabetes mellitus without complications; I10 Essential (primary) hypertension
CPT/HCPCS: 36415; 80053; 82043; 82570; 83036; 85025

== ENCOUNTER → 2025-05-13 09:08 | Outpatient (CLI) | payer OTHER, SELFPAY ==
[2025-05-13 09:37] LABS: Add Manual Diff / Slide Review NO; Hematocrit 45.6 % (41-53); Hemoglobin 15.3 g/dL (13.5-17.5); Lymphocytes Absolute Auto 1100 /uL (1100-4500); Mean Corpuscular HGB Conc 33.5 % (30-36); Mean Corpuscular Hemoglobin 29.7 PG (26-34); Mean Corpuscular Volume 88.7 fL (80-100); Platelet Count 164 X10^3/uL (150-400)
[2025-05-13 10:00] LABS: Hemoglobin A1C% w Est Avg Glu 9.7 % (4.0-6.0)
[2025-05-13 10:12] LABS: Alanine Aminotransferase 48 IU/L (<50); Albumin 4.8 g/dL (3.5-5.0); Albumin Globulin Ratio 1.5 (1.0-2.8); Alkaline Phosphatase 109 U/L (38-126); Blood Urea Nitrogen 14 mg/dL (9-20); Calcium 10.1 mg/dL (8.4-10.2); Carbon Dioxide 27 mmol/L (22-32); Chloride 99 mmol/L (98-107); Estimated Glomerular Filt Rate > 60 mL/min (>60); Globulin 3.1 g/dL (1.7-4.1); Glucose 190 mg/dL (70-99); HEMOLYSIS < 15 (0-50); Potassium 4.3 mmol/L (3.4-5.1); Sodium 137 mmol/L (137-145); Total Protein 7.9 g/dL (6.3-8.2)
== END ==
PROVIDERS: PCP Family Medicine; Referring Provider Family Medicine; Visit Provider Family Medicine
DX: E11.9 Type 2 diabetes mellitus without complications (principal); I10 Essential (primary) hypertension; E78.49 Other hyperlipidemia
CPT/HCPCS: 36415; 80053; 83036; 85025